=== PATIENT | male | born 1945 | race Caucasian/White ===

== ENCOUNTER 2022-11-08 08:57 | Emergency (ER) | payer BC ==
[~2022-11-08] VITALS: Ht 172.7 cm; Wt 81.6 kg
[2022-11-08 09:20] VITALS: BP_SYST 158; PULSE 69; RESP 15; TEMP 97.1; O2SAT 96
[2022-11-08] MEDS ORDERED: DIPHTH,PERTUSS(ACELL),TET VAC 0.5 ML VIAL (Tdap) I.M. ONE (09:45)
[2022-11-08] MEDS ORDERED: LIDOCAINE 1% 10 MG/ML, 20 ML MDV INJ ONE (09:45)
[2022-11-08] MEDS ORDERED: AUG875 PO (10:17)
[2022-11-08] MEDS ORDERED: IBUP-1969 PO (10:17)
[2022-11-08 11:24] VITALS: BP_SYST 147; PULSE 72; RESP 15; TEMP 97.2; O2SAT 97
== END 2022-11-08 10:52 | disposition home or self-care (01) ==
LOC: SED 08:57
DX: S61.011A Laceration without foreign body of right thumb without damage to nail, initial encounter (principal); I10 Essential (primary) hypertension; Z79.899 Other long term (current) drug therapy; W54.0XXA Bitten by dog, initial encounter; Y93.89 Activity, other specified; Y92.89 Other specified places as the place of occurrence of the external cause; Y99.8 Other external cause status
CPT/HCPCS: 90715; 99283

== ENCOUNTER 2023-09-12 16:46 | Emergency (ER) | payer BC ==
[~2023-09-12] VITALS: Ht 167.6 cm; Wt 79.4 kg
[~2023-09-12 16:46] MED LIST: AUG875 PO; IBUP-1969 PO
[2023-09-12 17:05] VITALS: BP_SYST 126; PULSE 99; RESP 17; TEMP 97.4; O2SAT 97
[2023-09-12 18:03] VITALS: BP_SYST 126; PULSE 99; RESP 17; TEMP 97.4; O2SAT 97
[2023-09-12 18:06] LABS: BILIRUBIN,URINE NEGATIVE (NEGATIVE); BLOOD, URINE 3+ (NEGATIVE); COLOR,URINE YELLOW (YELLOW); GLUCOSE,URINE 3+ (NEGATIVE); KETONES,URINE NEGATIVE (NEGATIVE); LEUKOCYTE ESTERASE ,URINE TRACE (NEGATIVE); NITRITE, URINE NEGATIVE (NEGATIVE); PH,URINE 5.5 (5.0-8.0); PROTEIN URINE 2+ (NEGATIVE); UROBILINOGEN,URINE 0.2 (0.2-1.0)
[2023-09-12 18:19] LABS: CLARITY/URINE CLOUDY (CLEAR)
[2023-09-12 18:39] LABS: BACTERIA,URINE MODERATE /HPF (None Seen); WBC,URINE 20-50 /HPF (0-3)
[2023-09-12 18:40] LABS: MUCUS,URINE None Seen /LPF (None Seen); YEAST,URINE Moderate /HPF (None Seen)
== END 2023-09-12 18:02 | disposition home or self-care (01) ==
LOC: SED 16:46
DX: R33.9 Retention of urine, unspecified (principal); E11.9 Type 2 diabetes mellitus without complications; I10 Essential (primary) hypertension; Z98.890 Other specified postprocedural states; Z88.0 Allergy status to penicillin; Z79.899 Other long term (current) drug therapy; Z79.2 Long term (current) use of antibiotics
CPT/HCPCS: 81000; 81001; 81015; 87086; 99284

== ENCOUNTER 2023-10-11 00:18 | Emergency (ER) | payer BC ==
[~2023-10-11] VITALS: Ht 185.4 cm; Wt 77.1 kg
[2023-10-11 00:30] VITALS: BP_SYST 135; PULSE 112; RESP 20; TEMP 96.6; O2SAT 96
[2023-10-11 01:00] LABS: BASOPHILS # (AUTO) 0.1 K/uL (0.0-0.2); EOSINOPHILS # (AUTO) 0.2 K/uL (0.0-0.4); HEMATOCRIT 42.5 % (36-54); HEMOGLOBIN 14.5 g/dL (14.0-18.0); LYMPHOCYTES # (AUTO) 1.2 K/uL (1.0-5.5); LYMPHOCYTES % (AUTO) 15.5 % (20.5-51.5); MEAN CORPUSCULAR HEMOGLOBIN 31 pg (27-31); MEAN CORPUSCULAR HGB CONC 34 % (32-36); MEAN CORPUSCULAR VOLUME 90 fL (79.0-98.0); MONOCYTES # (AUTO) 1.1 K/uL (0.0-1.0); MONOCYTES % (AUTO) 13.4 % (1.7-9.3); NEUTROPHILS # (AUTO) 5.4 K/uL (1.8-7.7); NEUTROPHILS % (AUTO) 67.1 % (40.0-70.0); PLATELET COUNT (AUTO) 191 K/uL (130-430); RED BLOOD CELL COUNT(AUTO) 4.71 MIL/uL (4.2-6.2)
[2023-10-11 01:39] LABS: BILIRUBIN,URINE NEGATIVE (NEGATIVE); BLOOD, URINE 3+ (NEGATIVE); CLARITY/URINE CLOUDY (CLEAR); COLOR,URINE YELLOW (YELLOW); GLUCOSE,URINE 3+ (NEGATIVE); KETONES,URINE NEGATIVE (NEGATIVE); LEUKOCYTE ESTERASE ,URINE 1+ (NEGATIVE); NITRITE, URINE POSITIVE (NEGATIVE); PH,URINE 5.5 (5.0-8.0); PROTEIN URINE 1+ (NEGATIVE); UROBILINOGEN,URINE 0.2 (0.2-1.0)
[2023-10-11 01:44] LABS: ALANINE AMINOTRANSFERASE 24 U/L (12-78); ALBUMIN 3.3 g/dL (3.4-4.8); ANION GAP 9 (5-15); ASPARTATE AMINOTRANSFERASE 25 U/L (10-37); BILIRUBIN,DIRECT 0.2 mg/dL (0.0-0.3); CALCIUM 9.5 mg/dL (8.4-11.0); CARBON DIOXIDE 24 mmol/L (23-29); CHLORIDE 105 mmol/L (98-107); CREATININE 1.24 mg/dL (0.55-1.30); GLUCOSE 163 mg/dL (74-106); POTASSIUM 3.8 mmol/L (3.5-5.1); SODIUM SERUM 138 mmol/L (136-145); TOTAL BILIRUBIN 0.5 mg/dL (0.0-1.0); TOTAL PROTEIN, SERUM 6.7 g/dL (6.4-8.3); UREA NITROGEN, BLOOD 33 mg/dL (8-21)
[2023-10-11 01:47] LABS: BACTERIA,URINE MANY /HPF (None Seen); WBC,URINE >100 /HPF (0-3); YEAST,URINE Moderate /HPF (None Seen)
[2023-10-11 02:00] VITALS: BP_SYST 135; PULSE 100; RESP 20; TEMP 96.6; O2SAT 96
[2023-10-11] MEDS ORDERED: NITR-85 PO ×2 (02:01→17:43)
[2023-10-11] MEDS: NITROFURANTOIN MONOHYD/M-CRYST 100 MG CAPSULE (MacroBID) PO ONE (02:07)
== END 2023-10-11 02:08 | disposition home or self-care (01) ==
LOC: SED 00:18
DX: N39.0 Urinary tract infection, site not specified (principal); R33.9 Retention of urine, unspecified; R10.30 Lower abdominal pain, unspecified; E11.9 Type 2 diabetes mellitus without complications; I10 Essential (primary) hypertension; Z87.438 Personal history of other diseases of male genital organs
CPT/HCPCS: 36415; 80048; 80076; 81000; 81001; 81015; 85025; 87086; 87186; 99284

== ENCOUNTER 2023-10-19 03:54 | Emergency (ER) | payer BC ==
[~2023-10-19] VITALS: Ht 167.6 cm; Wt 77.1 kg
[~2023-10-19 03:54] MED LIST changes: +NITR-85 PO
[2023-10-19 04:11] VITALS: BP_SYST 108; PULSE 110; RESP 20; TEMP 98.4; O2SAT 95
[2023-10-19 04:45] VITALS: BP_SYST 150; O2SAT 95
[2023-10-19 04:51] VITALS: PULSE 113; RESP 25; TEMP 97.3
== END 2023-10-19 04:45 | disposition left against medical advice (07) ==
LOC: SED 03:54
DX: T83.018A Breakdown (mechanical) of other urinary catheter, initial encounter (principal); E11.9 Type 2 diabetes mellitus without complications; I10 Essential (primary) hypertension; Z88.0 Allergy status to penicillin; Z79.899 Other long term (current) drug therapy; Z79.2 Long term (current) use of antibiotics; Y83.8 Other surgical procedures as the cause of abnormal reaction of the patient, or of later complication, without mention of misadventure at the time of the procedure; Y92.89 Other specified places as the place of occurrence of the external cause
CPT/HCPCS: 99284